=== PATIENT | male | born 1990 | race Caucasian/White ===

== ENCOUNTER 2019-10-04 06:26 | Inpatient (IN) ==
[2019-10-04] MEDS ORDERED: *HR* HYDROmorphone (PF) 1 MG/ML SYRINGE IVP ONE ×2 (07:03→09:38)
[2019-10-04 09:03] LABS: Bilirubin,Urine Negative (Negative); Blood,Urine Negative (Negative); Clarity,Urine Clear (Clear); Color,Urine Yellow (Yellow); Glucose,Urine (UA) Normal (Normal); Ketones,Urine Trace mg/dL (Negative); Leukocyte Esterase,Urine Negative (Negative); Nitrite,Urine Negative (Negative); PH,Urine 5.5 pH Units (5.0-8.0); Protein,Urine Trace mg/dL (Neg-Trace); Specific Gravity,Urine 1.015 (1.010-1.025); Urobilinogen,Urine Normal (Normal)
[2019-10-04 09:08] LABS: Basophils # 0.1 K/mcL (0.0-0.2); Basophils % 0.4 %; Eosinophils % 0.3 %; Hematocrit 52.2 % (37.5-50.1); Hemoglobin 18.3 g/dL (12.9-16.9); Immature Granulocytes % 0.6 % (0-4); Lymphocytes # 1.5 K/mcL (0.6-4.6); Mean Corpuscular HGB Conc 35.1 g/dL (31.6-35.5); Mean Corpuscular Hemoglobin 30.9 pg (28.0-33.3); Mean Platelet Volume 9.7 fL (9.4-12.4); Monocytes # 0.5 K/mcL (0.0-1.3); Monocytes % 3.4 %; Neutrophils # 11.8 K/mcL (1.6-8.9); Platelet Count 319 K/mcL (140-400); Red Blood Count 5.93 M/mcL (4.19-5.50); Red Cell Distribution Width 12.2 % (11.5-14.5); Segmented Neutrophils % 84.3 %; White Blood Count 13.9 K/mcL (4.3-11.1)
[2019-10-04 09:18] LABS: Amphetamine Screen,Urine Negative ng/mL (Cutoff=1000); Barbiturate Screen,Urine Negative ng/mL (Cutoff=200); Benzodiazepines Screen,Urine Negative ng/mL (Cutoff=200); Cannabinoid Screen,Urine Positive ng/mL (Cutoff = 50); Cocaine Screen,Urine Positive ng/mL (Cutoff= 300); Opiate Screen,Urine Negative ng/mL (Cutoff=300); Phencyclidine Screen,Urine Negative ng/mL (Cutoff=25)
[2019-10-04 09:24] LABS: Acetaminophen < 10 mcg/mL (10-20); BUN/Creatinine Ratio 13 (6-26); Blood Urea Nitrogen 12 mg/dL (6-20); Calcium 9.7 mg/dL (8.6-10.3); Carbon Dioxide 21 mEq/L (23-29); Chloride 105 mEq/L (98-107); Ethanol 110 mg/dL (Less than 10); Glucose 104 mg/dL (70-105); Osmolality,Calculated 300 (280-300); Potassium 3.9 mEq/L (3.5-5.1); Salicylate < 2.5 mg/dL (15.0-30.0); Sodium 145 mEq/L (136-145); eGFR For African Americans > 60 (> 60); eGFR For Non-African Americans > 60 (> 60)
[2019-10-04] MEDS ORDERED: *HR* FentaNYL (PF) 100 MCG/2 ML VIAL IVP STA (09:26)
[2019-10-04] MEDS ORDERED: *HR* Midazolam HCl 2 MG/2 ML VIAL IVP ONE (09:26)
[2019-10-04] MEDS ORDERED: 0.9 % Sodium Chloride 1,000 ML ONE (10:22)
[2019-10-04] MEDS ORDERED: Naloxone 0.4 MG/ML INJ IVP PRN (10:51)
[2019-10-04] MEDS ORDERED: Ondansetron 4 MG/2 ML VIAL IVP PRN (10:51)
[2019-10-04] MEDS ORDERED: Acetaminophen 325 MG TABLET PO PRN (10:51)
[2019-10-04] MEDS ORDERED: *HR* LORazepam 2 MG/ML VIAL IVP PRN ×3 (11:01)
[2019-10-04] MEDS ORDERED: Isovue-370 500 ML BOTTLE IVP ONE (11:14)
[2019-10-04] MEDS ORDERED: Thiamine (B-1) 100 MG, Folic Acid 1 MG, MVI, adult with vitamin K 10 ML in 0.9 % Sodi... IVPB SCH (11:30)
[2019-10-04 12:04] LABS: Lipase 18 Units/L (11-82)
[2019-10-04] MEDS ORDERED: *HR* HYDROcodone/Acet 5/325 mg TABLET PO ONE (12:09)
[2019-10-04] MEDS: *HR* OxyCODONE Immed Rel 5 MG TABLET PO PRN ×2 (14:53→22:01)
[2019-10-04] MEDS: *HR* Heparin 5,000 UNIT/ML VIAL SQ SCH (21:56)
[2019-10-05] MEDS ORDERED: Morphine Sulfate 2 MG/ML SYRINGE IVP ONE (00:15)
[2019-10-05] MEDS ORDERED: *HR* OxyCODONE Immed Rel 5 MG TABLET PO ONE (01:46)
[2019-10-05 05:49] LABS: Hemoglobin 15.4 g/dL (12.9-16.9); Mean Corpuscular HGB Conc 33.5 g/dL (31.6-35.5); Mean Corpuscular Hemoglobin 30.4 pg (28.0-33.3); Mean Corpuscular Volume 90.9 fL (83.0-100.0); Mean Platelet Volume 9.9 fL (9.4-12.4); Platelet Count 254 K/mcL (140-400); Red Blood Count 5.06 M/mcL (4.19-5.50); Red Cell Distribution Width 12.2 % (11.5-14.5); White Blood Count 9.5 K/mcL (4.3-11.1)
[2019-10-05 05:55] LABS: INR 1.1; Prothrombin Time 12.2 Seconds (9.4-12.1)
[2019-10-05 06:14] LABS: BUN/Creatinine Ratio 13 (6-26); Blood Urea Nitrogen 12 mg/dL (6-20); Calcium 9.4 mg/dL (8.6-10.3); Carbon Dioxide 26 mEq/L (23-29); Chloride 104 mEq/L (98-107); Glucose 94 mg/dL (70-105); Magnesium 1.9 mg/dL (1.6-2.6); Osmolality,Calculated 288 (280-300); Potassium 3.5 mEq/L (3.5-5.1); Sodium 139 mEq/L (136-145); eGFR For African Americans > 60 (> 60); eGFR For Non-African Americans > 60 (> 60)
[2019-10-05] MEDS: *HR* OxyCODONE Immed Rel 5 MG TABLET PO PRN ×3 (06:15→21:13)
[2019-10-05] MEDS: *HR* Heparin 5,000 UNIT/ML VIAL SQ SCH ×3 (06:15→21:14)
[2019-10-05] MEDS: Folic Acid 1 MG TABLET PO SCH (08:47)
[2019-10-05] MEDS: Vitamin B Complex/Vit C/Vit E 1 EACH TABLET PO SCH (08:47)
[2019-10-05] MEDS: Thiamine (B-1) 100 MG TABLET PO SCH (08:47)
[2019-10-05 09:14] LABS: Amphetamine Screen,Urine Negative ng/mL (Cutoff=1000); Barbiturate Screen,Urine Negative ng/mL (Cutoff=200); Benzodiazepines Screen,Urine Positive ng/mL (Cutoff=200); Cannabinoid Screen,Urine Positive ng/mL (Cutoff = 50); Cocaine Screen,Urine Positive ng/mL (Cutoff= 300); Opiate Screen,Urine Positive ng/mL (Cutoff=300); Phencyclidine Screen,Urine Negative ng/mL (Cutoff=25)
[2019-10-06] MEDS ORDERED: Mag Hydrox/Al Hydrox/Simeth 30 ML UDC PO PRN ×2 (00:39→20:51)
[2019-10-06 04:15] LABS: Amphetamine Screen,Urine Negative ng/mL (Cutoff=1000); Barbiturate Screen,Urine Negative ng/mL (Cutoff=200); Benzodiazepines Screen,Urine Positive ng/mL (Cutoff=200); Cannabinoid Screen,Urine Positive ng/mL (Cutoff = 50); Cocaine Screen,Urine Negative ng/mL (Cutoff= 300); Opiate Screen,Urine Positive ng/mL (Cutoff=300); Phencyclidine Screen,Urine Negative ng/mL (Cutoff=25)
[2019-10-06] MEDS: *HR* Heparin 5,000 UNIT/ML VIAL SQ SCH ×2 (04:45→14:55)
[2019-10-06] MEDS ORDERED: Morphine Sulfate 2 MG/ML SYRINGE IVP ONE (06:26)
[2019-10-06] MEDS: Thiamine (B-1) 100 MG TABLET PO SCH (07:15)
[2019-10-06] MEDS: Folic Acid 1 MG TABLET PO SCH (07:15)
[2019-10-06] MEDS: Vitamin B Complex/Vit C/Vit E 1 EACH TABLET PO SCH (07:15)
[2019-10-06] MEDS: *HR* OxyCODONE Immed Rel 5 MG TABLET PO PRN (09:34)
[2019-10-06] MEDS ORDERED: Lidocaine 1% 20 ML MDV ONE (17:11)
[2019-10-06] MEDS ORDERED: Ropivacaine/PF 0.5% 30 ML VIAL ONE (17:24)
[2019-10-06] MEDS ORDERED: *HR* Midazolam HCl 5 MG/5 ML VIAL IVP ONE (17:25)
[2019-10-06] MEDS ORDERED: *HR* Propofol 200 MG/20 ML VIAL IVP ONE (17:47)
[2019-10-06] MEDS ORDERED: Ketorolac 30 MG/ML VIAL ONE (19:14)
[2019-10-06] MEDS ORDERED: *HR* OxyCODONE Immed Rel 5 MG TABLET PO PRN ×2 (19:36→20:51)
[2019-10-06] MEDS ORDERED: Ondansetron 4 MG/2 ML VIAL IVP ONE (19:36)
[2019-10-06] MEDS ORDERED: *HR* HYDROMORPHONE 2 MG/ML VIAL ONE (19:38)
[2019-10-06] MEDS ORDERED: *HR* LORazepam 2 MG/ML VIAL IVP PRN ×3 (20:51)
[2019-10-06] MEDS ORDERED: Ondansetron 4 MG/2 ML VIAL IVP PRN (20:51)
[2019-10-06] MEDS ORDERED: Naloxone 0.4 MG/ML INJ IVP PRN (20:51)
[2019-10-06] MEDS ORDERED: Acetaminophen 325 MG TABLET PO PRN (20:51)
[2019-10-07] MEDS: *HR* Heparin 5,000 UNIT/ML VIAL SQ SCH ×3 (00:07→12:28)
[2019-10-07] MEDS ORDERED: Mag Hydrox/Al Hydrox/Simeth 30 ML UDC PO PRN (04:10)
[2019-10-07] MEDS ORDERED: Thiamine (B-1) 100 MG TABLET PO SCH (09:00)
[2019-10-07] MEDS ORDERED: Folic Acid 1 MG TABLET PO SCH (09:00)
[2019-10-07] MEDS ORDERED: Vitamin B Complex/Vit C/Vit E 1 EACH TABLET PO SCH (09:00)
[2019-10-07 11:32] VITALS: BP 143/84
[2019-10-07] MEDS ORDERED: *HR* HYDROmorphone 2 MG/ML SYRINGE IVP ONE (13:41)
[2019-10-07] MEDS ORDERED: FLU Vac QV 19-20 (6Month+)/PF 0.5 ML SYRINGE IM ONE (14:17)
== END 2019-10-07 17:13 | disposition home or self-care (01) | DRG 313 ==
LOC: SUATTDRO → 2ANU 06:26 → EMEROOARM 06:26 → SUATTDRO 12:34 → 2ANU 13:23
PROVIDERS: ADMIT Pharmacist; ATTEND Internal Medicine

== ENCOUNTER 2020-12-04 01:02 | Observation (INO) ==
[2020-12-04] MEDS ORDERED: 0.9 % Sodium Chloride 1,000 ML IVC ONE (01:32)
[2020-12-04 02:02] LABS: Basophils # 0.1 K/mcL (0.0-0.2); Basophils % 0.5 %; Eosinophils # 0.1 K/mcL (0.0-0.6); Eosinophils % 1.1 %; Hematocrit 46.2 % (37.5-50.1); Hemoglobin 15.3 g/dL (12.9-16.9); Immature Granulocytes % 0.5 % (0-4); Lymphocytes # 1.8 K/mcL (0.6-4.6); Lymphocytes % 18.4 %; Mean Corpuscular HGB Conc 33.1 g/dL (31.6-35.5); Mean Corpuscular Hemoglobin 29.8 pg (28.0-33.3); Mean Corpuscular Volume 89.9 fL (83.0-100.0); Mean Platelet Volume 9.9 fL (9.4-12.4); Monocytes # 0.7 K/mcL (0.0-1.3); Monocytes % 7.3 %; Neutrophils # 7.1 K/mcL (1.6-8.9); Platelet Count 307 K/mcL (140-400); Red Blood Count 5.14 M/mcL (4.19-5.50); Segmented Neutrophils % 72.2 %; White Blood Count 9.9 K/mcL (4.3-11.1)
[2020-12-04 02:03] LABS: Amphetamine Screen,Urine Negative ng/mL (Cutoff=1000); Barbiturate Screen,Urine Negative ng/mL (Cutoff=200); Benzodiazepines Screen,Urine Positive ng/mL (Cutoff=200); Cannabinoid Screen,Urine Positive ng/mL (Cutoff = 50); Cocaine Screen,Urine Negative ng/mL (Cutoff= 300); Opiate Screen,Urine Negative ng/mL (Cutoff=300); Phencyclidine Screen,Urine Negative ng/mL (Cutoff=25)
[2020-12-04 02:19] LABS: BUN/Creatinine Ratio 11 (6-26); Blood Urea Nitrogen 10 mg/dL (6-20); Calcium 9.2 mg/dL (8.6-10.3); Carbon Dioxide 24 mEq/L (23-29); Chloride 110 mEq/L (98-107); Ethanol < 10 mg/dL (Less than 10); Glucose 120 mg/dL (70-105); Osmolality,Calculated 294 (280-300); Potassium 3.6 mEq/L (3.5-5.1); Sodium 142 mEq/L (136-145); eGFR For African Americans > 60 (> 60); eGFR For Non-African Americans > 60 (> 60)
[2020-12-04] MEDS ORDERED: Ondansetron 4 MG/2 ML VIAL IVP PRN (03:17)
[2020-12-04] MEDS ORDERED: Naloxone 0.4 MG/ML INJ IVP PRN (03:17)
[2020-12-04] MEDS ORDERED: Melatonin 3 MG TABLET PO PRN (03:17)
[2020-12-04] MEDS ORDERED: Perflutren Lipid Microsphere 1.3 ML in 0.9 % Sodium Chloride 8.7 ML IVP PRN (03:19)
[2020-12-04 05:54] LABS: Troponin I 0.06 ng/mL (< 0.04)
[2020-12-04 07:01] LABS: Magnesium 1.9 mg/dL (1.6-2.6)
[2020-12-04 07:13] LABS: Thyroid Stimulating Hormone 3.343 mcIU/mL (0.340-5.600)
[2020-12-04] MEDS ORDERED: *HR* Heparin 5,000 UNIT/ML VIAL IVP PRN ×2 (10:10)
[2020-12-04] MEDS ORDERED: *HR* Heparin 5,000 UNIT/ML VIAL IVP ONE (10:10)
[2020-12-04] MEDS ORDERED: Aspirin 325 MG TABLET PO ONE (10:11)
[2020-12-04] MEDS ORDERED: Heparin 25,000UNIT/250ML 1/2NS 25,000 UNIT/250 ML IV.SOLN IVC SCH (10:15)
[2020-12-04 11:36] LABS: Heparin anti-factor XA UFH 0.42 IU/mL (0.30-0.70); Prothrombin Time 11.8 Seconds (9.4-12.1)
[2020-12-04] MEDS: carvediloL 6.25 MG TABLET PO SCH (16:48)
[2020-12-05 04:49] LABS: Hematocrit 46.8 % (37.5-50.1); Hemoglobin 15.7 g/dL (12.9-16.9); Mean Corpuscular HGB Conc 33.5 g/dL (31.6-35.5); Mean Corpuscular Hemoglobin 29.7 pg (28.0-33.3); Mean Corpuscular Volume 88.6 fL (83.0-100.0); Platelet Count 292 K/mcL (140-400); Red Blood Count 5.28 M/mcL (4.19-5.50); Red Cell Distribution Width 11.9 % (11.5-14.5); White Blood Count 9.8 K/mcL (4.3-11.1)
[2020-12-05 05:03] LABS: BUN/Creatinine Ratio 13 (6-26); Blood Urea Nitrogen 12 mg/dL (6-20); Calcium 9.8 mg/dL (8.6-10.3); Carbon Dioxide 24 mEq/L (23-29); Chloride 106 mEq/L (98-107); Glucose 90 mg/dL (70-105); Osmolality,Calculated 287 (280-300); Potassium 3.6 mEq/L (3.5-5.1); Sodium 139 mEq/L (136-145); eGFR For African Americans > 60 (> 60); eGFR For Non-African Americans > 60 (> 60)
[2020-12-05 06:59] VITALS: BP 137/88
[2020-12-05] MEDS: carvediloL 6.25 MG TABLET PO SCH (08:42)
[2020-12-05] MEDS ORDERED: Aspirin Enteric Coated 81 MG Tablet PO SCH (09:00)
[2020-12-05] MEDS ORDERED: carvediloL 6.25 MG TABLET PO SCH (17:00)
== END 2020-12-05 10:46 | disposition home or self-care (01) ==
LOC: EMEROOARM 01:02 → CDU 01:02 → SUATTDRO 02:49 → CDU 02:56 → 3BNU 17:11
PROVIDERS: ADMIT Internal Medicine; ATTEND Internal Medicine